=== PATIENT | female | born 1965 | race Caucasian/White ===

== ENCOUNTER 2017-02-04 14:03 | Inpatient (IN) | payer OTHER, SELFPAY ==
[~2017-02-04] VITALS: Ht 162.6 cm; Wt 87.7 kg
[2017-02-04] MEDS ORDERED: SODIUM CHLORIDE FLUSH 10ML SYR IVF ONE (15:00)
[2017-02-04] MEDS ORDERED: ASPIRIN 81 MG TABLET CHEW PO ONE (15:00)
[2017-02-04] MEDS ORDERED: NITROGLYCERIN OINT 2%, 1GM TP ONE ×3 (15:24→15:39)
[2017-02-04] MEDS ORDERED: ASPIRIN 81 MG TABLET CHEW ONE (15:24)
[2017-02-04] MEDS ORDERED: NITROGLYCERIN SINGLE TAB 0.4 MG SL ONE (15:24)
[2017-02-04] MEDS: NITROGLYCERIN SINGLE TAB 0.4 MG SL PRN ×2 (15:34→15:54)
[2017-02-04 15:53] LABS: HEMATOCRIT 46.3 % (34.6-47.8); HEMOGLOBIN 15.7 g/dL (11.7-16.4); WHITE BLOOD COUNT 12.2 x10^3/uL (3.4-10)
[2017-02-04 15:58] LABS: ASPARTATE AMINO TRANSFERASE 18 U/L (15-37); BLOOD UREA NITROGEN 13 mg/dL (7-18)
[2017-02-04 16:08] LABS: IS PT STATUS REG ER OR PRE ER? YES
[2017-02-04] MEDS ORDERED: ACETAMINOPHEN 500 MG TABLET ONE (18:12)
[2017-02-04] MEDS ORDERED: ACETAMINOPHEN 500 MG TABLET PO ONE (18:30)
[2017-02-04] MEDS ORDERED: OMNIPAQUE 350 MG/ML, 100ML BOTTLE ONE (18:31)
[2017-02-04] MEDS ORDERED: NS + 20MEQ KCL 1,000 ML IV SCH (20:04)
[2017-02-04] MEDS ORDERED: ONDANSETRON 2MG/ML, 2ML IVPush PRN (20:30)
[2017-02-04] MEDS ORDERED: morphine SULFATE 10 MG/ML, 1ML IVPush PRN (20:30)
[2017-02-04] MEDS ORDERED: POLYETHYLENE GLYCOL 17 GM PACKET PO PRN (20:30)
[2017-02-04] MEDS ORDERED: ACETAMINOPHEN 325 MG TABLET PO PRN (20:30)
[2017-02-04] MEDS ORDERED: DOCUSATE 100 MG CAPSULE PO PRN (20:30)
[2017-02-04] MEDS ORDERED: LABETALOL 5MG/ML, 20ML IVPush PRN (20:30)
[2017-02-04] MEDS ORDERED: ENOXAPARIN 40 MG/0.4 ML SQ SCH (20:30)
[2017-02-04] MEDS ORDERED: BISACODYL 10 MG SUPP PR PRN (20:30)
[2017-02-04] MEDS ORDERED: KETOROLAC 30 MG/1 ML IVPush ONE (21:30)
[2017-02-05 01:33] LABS: IS PT STATUS REG ER OR PRE ER? NO
[2017-02-05 02:00] VITALS: BP 140/83
[2017-02-05 06:47] LABS: HEMATOCRIT 39.1 % (34.6-47.8)
[2017-02-05 07:03] LABS: IS PT STATUS REG ER OR PRE ER? NO
[2017-02-05 08:19] VITALS: BP 153/100
[2017-02-05] MEDS ORDERED: REGADENOSON 0.4 MG/5 ML SYRINGE ONE (08:57)
[2017-02-05 12:57] VITALS: BP 158/98
[2017-02-05] MEDS ORDERED: LISINOPRIL 10 MG TABLET PO SCH (13:30)
[2017-02-05 14:26] VITALS: BP 143/88
== END 2017-02-05 15:00 | disposition home or self-care (01) | DRG 313 ==
LOC: ED 19:49 → EDIP 20:04 → 5SO 20:46 → DCLOUNGE 02-05 14:45
PROVIDERS: ADMIT Internal Medicine; ATTEND Internal Medicine
DX: R07.89 Other chest pain (principal); G89.29 Other chronic pain; I10 Essential (primary) hypertension; J00 Acute nasopharyngitis [common cold]; Z79.82 Long term (current) use of aspirin; Z82.49 Family history of ischemic heart disease and other diseases of the circulatory system; Z83.3 Family history of diabetes mellitus; Z90.710 Acquired absence of both cervix and uterus; Z96.649 Presence of unspecified artificial hip joint; R00.0 Tachycardia, unspecified; Z90.49 Acquired absence of other specified parts of digestive tract; Z80.9 Family history of malignant neoplasm, unspecified
CPT/HCPCS: 36415; 71010; 71275; 78452; 80053; 80061; 81003; 83735; 83880; 84443; 84484; 85025; 85379; 93005; 93017; 93306; J1885; J2785; J3480; Q9967; A9502; C9898

== ENCOUNTER 2017-05-19 05:36 | Inpatient (IN) | payer OTHER ==
[~2017-05-19] VITALS: Ht 165.1 cm; Wt 82.3 kg
[~2017-05-19 05:36] MED LIST: MULT-224 PO; MV,I66.7 PO; VALS40TA2 PO
[2017-05-19] MEDS ORDERED: LACTATED RINGERS 1,000 ML IV SCH (06:09)
[2017-05-19] MEDS ORDERED: KETOROLAC 60 MG/2 ML ONE (06:26)
[2017-05-19] MEDS ORDERED: TRANEXAMIC ACID 100 MG/ML, 10ML ONE (06:26)
[2017-05-19] MEDS ORDERED: ROPIvacaine/PF 0.2%, 20 ML ONE (06:27)
[2017-05-19] MEDS ORDERED: SODIUM CHLORIDE 0.9% 100 ML ONE (06:27)
[2017-05-19] MEDS ORDERED: EPINEPHRINE 1 MG/ML, 1ML ONE (06:27)
[2017-05-19] MEDS ORDERED: GABAPENTIN 300 MG CAPSULE ONE (06:50)
[2017-05-19] MEDS ORDERED: ACETAMINOPHEN 500 MG TABLET ONE (06:51)
[2017-05-19] MEDS ORDERED: OxyconTIN ER 10 MG TAB.ER ONE (06:51)
[2017-05-19] MEDS ORDERED: MIDAZOLAM 1 MG/ML, 2ML ONE (06:52)
[2017-05-19] MEDS ORDERED: FENTANYL PF 100 MCG/2ML ONE (06:53)
[2017-05-19] MEDS ORDERED: VANCOMYCIN 1,000 MG ONE (06:54)
[2017-05-19] MEDS ORDERED: LABETALOL 5MG/ML, 20ML IV PRN (07:00)
[2017-05-19] MEDS ORDERED: OxyconTIN ER 10 MG TAB.ER PO ONE (07:00)
[2017-05-19] MEDS ORDERED: ACETAMINOPHEN 500 MG TABLET PO ONE ×2 (07:00→07:30)
[2017-05-19] MEDS ORDERED: PROMETHAZINE 25 MG/ML, 1ML IV PRN (07:00)
[2017-05-19] MEDS ORDERED: FENTANYL PF 100 MCG/2ML IV PRN (07:00)
[2017-05-19] MEDS ORDERED: ONDANSETRON 2MG/ML, 2ML IVPush PRN (07:00)
[2017-05-19] MEDS ORDERED: HYDROcodone/APAP 7.5-325MG/15ML UDC PO PRN (07:00)
[2017-05-19] MEDS ORDERED: hydrALAzine 20 MG/ML, 1ML IV PRN (07:00)
[2017-05-19] MEDS ORDERED: OXYcodone 5 MG/5 ML ORAL.SOL UDC PO PRN (07:00)
[2017-05-19] MEDS ORDERED: GABAPENTIN 300 MG CAPSULE PO ONE (07:00)
[2017-05-19] MEDS ORDERED: MEPERIDINE/PF 25MG/0.5ML IVPush PRN (07:00)
[2017-05-19] MEDS ORDERED: morphine SULFATE 10 MG/ML, 1ML IV PRN (07:00)
[2017-05-19] MEDS ORDERED: PHENYLEPHRINE 10 MG/ML ONE (07:07)
[2017-05-19] MEDS ORDERED: SUCCINYLCHOLINE 20 MG/ML, 10ML ONE (07:07)
[2017-05-19] MEDS ORDERED: PROPOFOL 10 MG/ML, 20ML ONE (07:07)
[2017-05-19] MEDS ORDERED: ONDANSETRON 2MG/ML, 2ML ONE (07:07)
[2017-05-19] MEDS ORDERED: DEXAMETHASONE 4 MG/ML, 1ML ONE (07:07)
[2017-05-19] MEDS ORDERED: CEFAZOLIN 1,000 MG ONE (07:07)
[2017-05-19] MEDS ORDERED: ROCURONIUM 10 MG/ML,10ML ONE (07:07)
[2017-05-19] MEDS ORDERED: ZOLPIDEM 5MG TABLET PO PRN (09:30)
[2017-05-19] MEDS ORDERED: MAGNESIUM HYDROXIDE 8%, 30ML UDC PO PRN (09:30)
[2017-05-19] MEDS ORDERED: DIAZEPAM 5 MG TABLET PO PRN (09:30)
[2017-05-19] MEDS: KETOROLAC 30 MG/1 ML IV SCH ×3 (09:30→20:49)
[2017-05-19] MEDS ORDERED: ALUMINUM/MAG/SIMETHICONE 30 ML UDC PO PRN (09:30)
[2017-05-19] MEDS ORDERED: OXYcodone IR 5MG TABLET PO PRN (09:30)
[2017-05-19] MEDS ORDERED: ONDANSETRON 2MG/ML, 2ML IV PRN (09:30)
[2017-05-19] MEDS ORDERED: SENNA/DOCUSATE TABLET PO PRN (09:30)
[2017-05-19] MEDS ORDERED: ONDANSETRON 4 MG TABLET PO PRN (09:30)
[2017-05-19] MEDS ORDERED: BISACODYL 10 MG SUPP PR PRN (09:30)
[2017-05-19] MEDS ORDERED: ACETAMINOPHEN 650 MG/20.3 ML UDC PO SCH ×2 (09:30→10:44)
[2017-05-19] MEDS ORDERED: PROMETHAZINE 25 MG/ML, 1ML IM PRN (09:30)
[2017-05-19] MEDS ORDERED: HYDROmorphone 1 MG/ML, 1ML IV PRN (09:30)
[2017-05-19] MEDS ORDERED: PROMETHAZINE 12.5 MG SUPP PR PRN (09:30)
[2017-05-19] MEDS ORDERED: TRANEXAMIC ACID 1,000 MG in SODIUM CHLORIDE 0.9% 100 ML IVPB ONE (09:45)
[2017-05-19] MEDS: OXYcodone IR 5MG TABLET PO SCH ×4 (11:25→23:31)
[2017-05-19] MEDS: TAMSULOSIN 0.4 MG CAP.ER.24H PO SCH (12:00)
[2017-05-19] MEDS: D5%-0.45% NACL 1,000 ML IV SCH ×3 (12:41→23:36)
[2017-05-19 12:55] VITALS: BP 112/74
[2017-05-19] MEDS ORDERED: CEFAZOLIN PMX 2GM/50ML 50 ML IVPB SCH (14:30)
[2017-05-19] MEDS: ACETAMINOPHEN 650 MG/20.3 ML UDC PO SCH ×2 (17:59→23:31)
[2017-05-19 18:27] VITALS: BP 110/60
[2017-05-19] MEDS: DOCUSATE 100 MG CAPSULE PO SCH (19:31)
[2017-05-19] MEDS ORDERED: DIPHENHYDRAMINE 25 MG CAPSULE ONE (21:40)
[2017-05-19] MEDS: DIPHENHYDRAMINE 50 MG CAPSULE PO PRN (21:41)
[2017-05-19 23:21] VITALS: BP 107/69
[2017-05-19] MEDS ORDERED: CEFAZOLIN 2,000 MG in DEXTROSE 5% 100 ML IVPB SCH (23:30)
[2017-05-20 03:28] VITALS: BP 128/67
[2017-05-20] MEDS: KETOROLAC 30 MG/1 ML IV SCH ×2 (03:32→08:07)
[2017-05-20] MEDS ORDERED: DIPHENHYDRAMINE 25 MG CAPSULE ONE ×2 (04:38→08:05)
[2017-05-20] MEDS: OXYcodone IR 5MG TABLET PO SCH ×3 (04:42→12:28)
[2017-05-20] MEDS: DIPHENHYDRAMINE 50 MG CAPSULE PO PRN ×2 (04:43→08:07)
[2017-05-20] MEDS: ACETAMINOPHEN 650 MG/20.3 ML UDC PO SCH ×2 (04:45→11:49)
[2017-05-20] MEDS ORDERED: DEXAMETHASONE 4 MG/ML, 1ML IVPush SCH (06:00)
[2017-05-20] MEDS ORDERED: ASPIRIN 81 MG TABLET EC PO SCH (06:00)
[2017-05-20 07:18] VITALS: BP 104/61
[2017-05-20] MEDS: DOCUSATE 100 MG CAPSULE PO SCH (08:47)
[2017-05-20] MEDS: TAMSULOSIN 0.4 MG CAP.ER.24H PO SCH (08:47)
[2017-05-20] MEDS: D5%-0.45% NACL 1,000 ML IV SCH (08:48)
[2017-05-20] MEDS ORDERED: MULTIVITAMINS/MINERALS TABLET PO SCH (09:00)
[2017-05-20] MEDS ORDERED: ACET650S21 PO (09:17)
[2017-05-20] MEDS ORDERED: ASPI-621 PO ×2 (09:17→10:25)
[2017-05-20] MEDS ORDERED: OXYC5CAP2 PO (09:48)
== END 2017-05-20 13:20 | disposition home or self-care (01) | DRG 470 ==
LOC: ORIP 05:36 → 4NOR 10:22 → DCLOUNGE 05-20 13:10
PROVIDERS: ADMIT Orthopaedic Surgery; ATTEND Orthopaedic Surgery
PROC: 0SRB06Z Replacement of Left Hip Joint with Oxidized Zirconium on Polyethylene Synthetic Substitute, Open Approach (ICD-10-PCS; principal; 2017-05-19 07:30)
DX: M16.12 Unilateral primary osteoarthritis, left hip (principal); I10 Essential (primary) hypertension
CPT/HCPCS: 36415; 72170; 85014; 85018; 86850; 86900; C1713; J0171; J0690; J1100; J1885; J2250; J2405; J2704; J2795; J3010; J3370; C1776; J0330; J2370; J7120